=== PATIENT | male | born 1980 | race African-American/Black ===

== ENCOUNTER 2016-04-30 20:30 | Emergency (ER) ==
[2016-04-30] MEDS ORDERED: ZITHROMAX PO ONE (21:28)
[2016-04-30] MEDS ORDERED: TESSALON PO ONE (21:29)
[2016-04-30] MEDS ORDERED: VENTOLIN HFA INH ONE (21:29)
[2016-04-30] MEDS ORDERED: MOTRIN PO ONE (21:30)
--- NOTE | 2016-04-30 21:30 | PROVIDER DOCUMENTATION ---
HPI-Respiratory General - General Chief Complaint: Cough Stated Complaint: N/V, RT CHEST PAIN Time Seen by Provider: 04/30/16 20:42 Source: patient, family Allergies/Adverse Reactions: Patient Allergies Allergy/AdvReac Type Severity Reaction Status Date / Time No Known Allergies Allergy Verified 04/30/16 21:50 - History of Present Illness-Resp Nature of Presenting Problem: 35 year old AAM presents with c/o cough for 2 months, pt reports copious amounts of yellow/green sputum production with wheezing and shortness of breath. pt reports he has been going to work with this cough. denies fever, chills, nausea, vomiting, chest pain. pt reports discomfort with coughing, otherwise denies pain. Review of Systems - Adult - REVIEW OF SYSTEMS - ADULT Constitutional: reports: no symptoms reported. denies: chills, fever Eyes: reports: no symptoms reported. denies: discharge, blurred vision, double vision Ears, Nose, Mouth & Throat: reports: no symptoms reported. denies: ear discharge, ear pain, nose pain, loose teeth, throat pain, throat swelling Cardiovascular: reports: no symptoms reported. denies: chest pain, palpitations , syncope Respiratory: reports: see HPI, cough, excessive sputum production, shortness of breath, wheezing. denies: chronic cough, dyspnea on exertion, hemoptysis, pleurisy Gastrointestinal: reports: no symptoms reported. denies: abdominal pain, diarrhea, nausea, vomiting Genitourinary: reports: no symptoms reported. denies: dysuria, hematuria, urgency Musculoskeletal: reports: no symptoms reported. denies: bone pain, joint pain, neck pain Integumentary: reports: no symptoms reported. denies: hives, rash, skin sores/ ulcer Neurological: reports: no symptoms reported. denies: ataxia, numbness, paresthesia, tremors Psychiatric: reports: no symptoms reported. denies: anxiety, anti-depressant use Endocrine: reports: no symptoms reported Hematologic/Lymphatic: reports: no symptoms reported Allergic/Immunologic: reports: no symptoms reported All Other Systems: Reviewed and Negative Past History - Adult - PAST MEDICAL HISTORY-ADULT Review of Records: reports: Old Records Reviewed, Nursing Assessment Review, Medications Reviewed, Social history reviewed & non-contributory. Major Childhood Illnesses: reports: denies history Cardiovascular: reports: denies history Respiratory: reports: denies history Gastrointestinal: reports: denies history Obstetrical/Gynecological: reports: denies history Genitourinary: reports: denies history Musculoskeletal: reports: denies history Neurological: reports: denies history Endocrine/Immune: reports: denies history Other Conditions: reports: denies history - FAMILY HISTORY Family History: reviewed, not pertinent - SOCIAL HISTORY Smoking: cigarettes, greater than 1 pack/day Provider spent 3-5 mins advising pt. on dangers of tobacco.: Discussed manners to quit use, and f/u contacts for add'l counseling. Substance Use: none/never Alcohol Use Frequency: never Physical Exam-General - PHYSICAL EXAM-ADULT Initial Vital Signs Reviewed: Yes - CONSTITUTIONAL General Appearance: appears well, alert, no apparent distress - EYES Eyes: pink conjunctivae - HEAD, EARS, NOSE, MOUTH & THROAT HENMT: normocephalic/atraumatic, moist mucous membranes, normal ENT inspection - NECK Neck: non-tender, full range of motion, normal inspection - RESPIRATORY Respiratory: chest non-tender, lungs clear, normal breath sounds, no pleuratic chest pain, no respiratory distress, no accessory muscle use. negative: respiratory distress, decreased breath sounds, accessory muscle use, crackles, rales, rhonchi, stridor, wheezing - CARDIOVASCULAR Cardiovascular: normal peripheral pulses, regular rate, rhythm, no edema - GASTROINTESTINAL (ABDOMEN) Abdominal Exam: normal bowel sounds, non tender, soft - GENITOURINARY Male Genitalia: deferred Rectal Exam: deferred Hemoccult Exam: deferred - LYMPHATIC Lymphatic: no adenopathy - MUSCULOSKELETAL Back Exam: normal inspection, no CVA tenderness, no vertebral tenderness Extremity: normal range of motion, non-tender, normal gait Peripheral Pulses: radial (R): 3+, radial (L): 3+ - SKIN Integumentary: normal color, normal turgor, warm/dry - NEUROLOGIC Neurologic: grossly normal, no motor/sensory deficits - PSYCHIATRIC Psych/Mental Status: normal mood/affect, normal thought content, normal thought process, oriented x 3 Progress - PLAN OF CARE/RESULTS Progress/Plan/Lab Results: Orders Category Date Time Status CHEST-2 VIEWS [RAD] Stat Exams 04/30/16 20:40 Taken Albuterol Sulfate Inhaler [Ventolin Hfa] Med 04/30/16 21:29 Discontinued 2 puff INH NOW ONE Azithromycin [Zithromax] Med 04/30/16 21:28 Discontinued 500 mg PO NOW ONE Benzonatate [Tessalon] Med 04/30/16 21:29 Discontinued 200 mg PO NOW ONE Ibuprofen [Motrin] Med 04/30/16 21:30 Discontinued 800 mg PO NOW ONE MDI Treatments Stat Oth 04/30/16 21:29 Active Vital Signs - 24 hr 04/30/16 04/30/16 20:38 21:56 Temperature 97.9 F Pulse Rate 86 77 Respiratory 18 16 Rate Blood Pressure 126/74 130/81 O2 Sat by Pulse 100 98 Oximetry Departure - Departure Time of Disposition Order: 21:25 DIAGNOSIS: Bronchitis Disposition: HOME 01 Certified Medical Emergency: Emergent Condition: Stable Additional Instructions: Follow up with your primary care doctor. ED Follow Up Instructions: You have been treated by a care provider in the Emergency Department. These instructions are being provided to you so you can have an understanding of how to care for yourself upon discharge. Upon discharge from the Emergency Department, you are responsible for making arrangements for follow-up care by a physician of your choice. Take all prescribed medications as directed. Return to the Emergency Department immediately for any new or worsening symptoms. You may call the Physician Referral phone number at [phone] to obtain a list of Physicians who are taking new patients. Prescriptions: Azithromycin 250 mg PO DAILY #4 tablet Albuterol Sulfate [Proair Hfa] 8.5 gm IH Q4-6H PRN PRN #1 [id number] PRN Reason: Wheezing Benzonatate [Tessalon] 100 mg PO TID PRN PRN #20 capsule PRN Reason: Cough Referrals: None,PCP [Primary Care Provider] - Forms: Return to School/Parent Work Instructions: Acute Bronchitis, [id number] Attestation - Physician/ Mid-level Attestation Patient care was provided by Mid-level provider ([facility] SERVICE TECHNICIAN/PA):: Yes Mid-level provider:: Brenda Larsen Mid-level documentation review:: The Mid-level provider documentation, treatment plan and medical decision making was reviewed by the physician who agrees with all treatment and medical decision making by the MLP.
[2016-04-30 21:59] VITALS: BP 130/81
--- NOTE | 2016-05-01 08:57 | Diag Imaging Result Document ---
PROCEDURE NAME: CHEST-2 VIEWS - 04/30/2016 CHEST X-RAY, 2 VIEWS: COMPARISON: 11/30/2010. FINDINGS: The lungs are normally expanded and clear. Heart size and mediastinal contours are normal. No pneumothorax or pleural effusion. IMPRESSION: Negative exam.
== END 2016-04-30 21:56 | disposition home or self-care (01) ==
LOC: ED 20:30
DX: J40 Bronchitis, not specified as acute or chronic (principal); R05 Cough; R09.3 Abnormal sputum; R06.2 Wheezing; R06.02 Shortness of breath; R11.2 Nausea with vomiting, unspecified; R07.89 Other chest pain; F17.210 Nicotine dependence, cigarettes, uncomplicated; Z71.6 Tobacco abuse counseling
CPT/HCPCS: 71020; 99283